=== PATIENT | male | born 1985 | race African-American/Black ===

== ENCOUNTER 2021-06-04 10:40 | Outpatient (CLI) | payer OTHER | END 2021-06-04 10:41 | disposition home or self-care (01) | LOC: TBSIIMAG 10:40 | PROVIDERS: ATTEND Neurological Surgery | DX: M50.11 Cervical disc disorder with radiculopathy, high cervical region (principal); Z98.1 Arthrodesis status | CPT/HCPCS: 72040 ==

== ENCOUNTER 2021-07-22 14:50 | Outpatient (CLI) | payer OTHER | END 2021-07-22 14:51 | disposition home or self-care (01) | LOC: TBSIIMAG 14:50 | PROVIDERS: ATTEND Physician Assistant Surgical | DX: S12.391D Other nondisplaced fracture of fourth cervical vertebra, subsequent encounter for fracture with routine healing (principal) | CPT/HCPCS: 72040 ==